=== PATIENT | female | born 2000 | race African-American/Black ===

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

== ENCOUNTER 2019-01-08 12:33 | Emergency (ER) | payer MEDICAID, OTHER ==
[2019-01-08 12:43] VITALS: BP 118/84
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
== END 2019-01-08 16:30 | disposition home or self-care (01) ==
LOC: ER 12:33
DX: M25.511 Pain in right shoulder (principal); M25.552 Pain in left hip; M25.562 Pain in left knee; Y04.8XXA Assault by other bodily force, initial encounter; Y92.009 Unspecified place in unspecified non-institutional (private) residence as the place of occurrence of the external cause; F17.200 Nicotine dependence, unspecified, uncomplicated
CPT/HCPCS: 99283